=== PATIENT | female | born 1970 | race Caucasian/White ===

== ENCOUNTER 2017-07-15 08:36 | Day surgery (SDC) | payer OTHER ==
[2017-07-15] MEDS ORDERED: LIDOCAINE 4% SOLUTION 50 ML BTL (09:42)
[2017-07-15] MEDS ORDERED: FENTAnyl 50 MCG/ML VIAL (10:31)
[2017-07-15] MEDS ORDERED: MIDAZOLAM 1 MG/ML 2 ML INJ ×2 (10:31)
== END 2017-07-15 10:56 | disposition home or self-care (01) ==
LOC: GIL 08:36
DX: K29.50 Unspecified chronic gastritis without bleeding (principal); E11.9 Type 2 diabetes mellitus without complications; I10 Essential (primary) hypertension
CPT/HCPCS: 43239; 82962; 88305; 88312